=== PATIENT | male | born 1965 | race Caucasian/White ===

== ENCOUNTER 2017-03-03 17:10 | Observation (INO) ==
[2017-03-03] MEDS ORDERED: *HR* HYDROmorphone (PF) 1 MG/ML SYRINGE IVP ONE ×2 (17:23→20:28)
[2017-03-03] MEDS ORDERED: Ondansetron 4 MG/2 ML VIAL IVP ONE (17:23)
[2017-03-03] MEDS ORDERED: 0.9 % Sodium Chloride 1,000 ML IVC ONE (17:23)
--- NOTE | 2017-03-03 17:28 | Emergency Department Note ---
Disposition Clinical Impression: Ureterolithiasis, Acute kidney injury Disposition: Admitted As Inpatient Condition: Good Referrals: Violeta Humphries MD [Primary Care Provider] - Forms: Work/School Release, ED Satisfaction Letter Time of Disposition: 19:07 Abdominal Pain HPI - General Chief Complaint: ED Abdominal Pain Stated Complaint: Kidney stone seen earlier today Time Seen by Provider: 03/03/17 17:19 Source: patient, family Mode of arrival: ambulatory Limitations: no limitations Nursing Notes Reviewed: Yes Vital Signs Reviewed: Yes - History of Present Illness HPI Narrative: 51-year-old with a history kidney stone seen earlier today for left flank pain when back home was a nauseated severe pain. No imaging or lab was done earlier. Pt Subjective Complaint: abdominal pain, flank pain Onset (ago): Just [employer] Consistency: constant Location: diffuse Pain Severity: moderate Pain Scale: 10 Quality: cramping, aching Radiation: none Migration to: no migration Improves with: nothing Worsens with: nothing Associated symptoms: Reports: nausea - Related Data Home Medications Medication Instructions Recorded Confirmed Lyrica 08/04/16 Metformin 08/04/16 08/04/16 Oxycodone HCl 08/04/16 Previous Rx's Medication Instructions Recorded Amoxicillin 875 mg PO BID #28 tablet 08/04/16 Sulfacetamide Sodium 10% OPTH 2 drop BOTH EYES QID #5 ml 08/04/16 [Bleph 10] Ibuprofen [Motrin] 800 mg PO Q8HR #20 tablet 03/03/17 Ondansetron ODT [Zofran ODT] 4 mg SL Q6HR #8 tab.rapdis 03/03/17 OxyCODONE/APAP 5/325 [Percocet 1 each PO Q6HR PRN #4 tablet 03/03/17 5/325 MG] Tamsulosin [Flomax] 0.4 mg PO DAILY #7 cap.er.24h 03/03/17 Allergies Allergy/AdvReac Type Severity Reaction Status Date / Time morphine AdvReac Vomiting Verified 03/03/17 10:10 All systems ED: reviewed and negative except as stated. Constitutional: Denies: fever, chills, weakness, weight change Eyes: Denies: eye pain, eye discharge, vision change ENT ED: Denies: ear pain, throat pain, dental pain, hearing loss, epistaxis, congestion, dysphagia Cardiovascular: Denies: chest pain, palpitations, dyspnea on exertion, edema, syncope Respiratory: Denies: cough, dyspnea, wheezes, hemoptysis, stridor Gastrointestinal: Reports: abdominal pain. Denies: nausea, vomiting, diarrhea, constipation, hematemesis, melena, hematochezia Genitourinary: Denies: urgency, dysuria, frequency, hematuria Musculoskeletal: Reports: back pain. Denies: neck pain, arthralgia, myalgia Integumentary: Denies: rash, abrasion, lesions Neurological: Denies: headache, weakness, numbness, paresthesias, confusion, abnormal gait, vertigo Psychiatric: Denies: anxiety, depression, suicidal thoughts, homicidal thoughts , auditory hallucinations, visual hallucinations Endocrine: Denies: fatigue Hematological/Lymphatic: Denies: easy bleeding, easy bruising Allergic/Immunologic: Denies: facial swelling, urticaria Abdominal Pain PMH - Past Medical History Medical history: Reports: diabetes, GERD, other Male Surgical History: Reports: appendectomy, cholecystectomy, orthopedic, other , other Psychiatric history: Reports: anxiety, ADHD, bipolar, depression, panic disorder , PTSD, prior suicide attempt, schizophrenia, previous psychiatric hospitalization - Social History Smoking status: Current every day smoker Alcohol use: Reports: occasionally, recent Drug use: Reports: none Physical Exam - General Limitations: no limitations General appearance: alert, anxious - Head Head exam: atraumatic, normocephalic, normal inspection - Eye Eye exam: Present: normal appearance, PERRL, EOMI - ENT ENT exam: normal exam, normal oropharynx, mucous membranes moist - Neck Neck exam: Present: normal inspection, full ROM, trachea midline - Chest Chest inspection: Present: normal inspection, symmetric chest wall rise - Respiratory Respiratory exam: Present: normal lung sounds bilaterally - Cardiovascular Cardiovascular exam: Present: regular rate, normal rhythm, normal heart sounds - Abdominal Exam Abdominal exam: Present: soft, Non-Tender. Absent: tenderness, distention, guarding, rebound, rigidity - Extremities Exam Extremities exam: Present: normal inspection, full ROM. Absent: tenderness, pedal edema - Expanded Lower Extremity Exam Neurovascular/Tendon exam: Absent: motor deficit, sensory deficit, tendon deficit Gait: observed and normal - Back Exam Back exam: Present: normal inspection, full ROM. Absent: tenderness - Neurological Exam Neurological exam: Present: alert, oriented X3 - Psychiatric Psychiatric exam: Present: normal affect, normal mood - Skin Skin exam: Present: warm, dry, intact, normal color Course - Reevaluation(s) Reevaluation #1: 51-year-old who comes in with left flank pain of CT scan shows a 1 cm stone he has persistent pain that has renal insufficiency were go-ahead admit him to the hospitalist with a consult to urology. Time: 19:05 - Consultations Consultation #1: Discussed with Dr. Ramírez, admit to hospitalist. Time: 19:04 Consultation #2: Discussed with Dr. Baker, admit. Time: 19:27 Vital Signs Temperature 98.0 F 03/03/17 17:11 Pulse Rate 88 03/03/17 17:11 Respiratory Rate 20 03/03/17 17:11 Blood Pressure 158/88 03/03/17 17:11 O2 Sat by Pulse Oximetry 94 03/03/17 17:11 Temperature 98.0 F 03/03/17 17:11 Pulse Rate 70 03/03/17 19:00 Respiratory Rate 16 03/03/17 19:00 Blood Pressure 143/96 03/03/17 19:00 O2 Sat by Pulse Oximetry 92 03/03/17 19:00 Oxygen Delivery Oxygen Delivery Room Air Abdominal Pain - Lab Data Lab results reviewed: Yes I reviewed the patient's lab results. Result diagrams: 03/03/17 17:39 03/03/17 17:39 Lab Results 03/03/17 03/03/17 03/03/17 Range/Units 17:28 17:39 17:39 WBC 14.7 H (4.3-11.1) K/mcL RBC 4.74 (4.19-5.50) M/mcL Hgb 14.8 (12.9-16.9) g/dL Hct 43.2 (37.5-50.1) % MCV 91.1 (83.0-100.0) fL MCH 31.2 (28.0-33.3) pg MCHC 34.3 (31.6-35.5) g/dL RDW 12.3 (11.5-14.5) % Plt Count 157 (140-400) K/mcL MPV 11.4 (9.4-12.4) fL Immature Gran % 0.4 (0-4) % Seg Neutrophils % 78.4 % Lymphocytes % 14.5 % Monocytes % 5.3 % Eosinophils % 0.9 % Basophils % 0.5 % Neutrophils # 11.5 H (1.6-8.9) K/mcL Lymphocytes # 2.1 (0.6-4.6) K/mcL Monocytes # 0.8 (0.0-1.3) K/mcL Eosinophils # 0.1 (0.0-0.6) K/mcL Basophils # 0.1 (0.0-0.2) K/mcL Immature Plt Fraction 9.0 H (1.1-6.1) % Sodium 130 L (136-145) mEq/L Potassium 4.4 (3.5-4.5) mEq/L Chloride 99 (98-109) mEq/L Carbon Dioxide 21 (19-29) mEq/L BUN 19 (8-26) mg/dL Creatinine 1.77 H (0.72-1.25) mg/dL Est GFR ( Amer) 50 L (> 60) Est GFR (Non-Af Amer) 41 L (> 60) BUN/Creatinine Ratio 11 (6-26) Glucose 252 H (70-99) mg/dL Calculated Osmolality 281 (280-300) Calcium 8.8 (8.6-10.8) mg/dL Urine Color Yellow (Yellow) Urine Clarity Clear (Clear) Urine pH 6.0 (5.0-8.0) pH Units Ur Specific [place] 1.008 L (1.010-1.025) Urine Protein Negative (Neg-Trace) mg/dL Urine Glucose (UA) 100 H (Normal) mg/dL Urine Ketones Negative (Negative) mg/dL Urine Blood Large H (Negative) Urine Nitrite Negative (Negative) Urine Bilirubin Negative (Negative) Urine Urobilinogen Normal (Normal) mg/dL Ur Leukocyte Esterase Negative (Negative) Urine Microscopic RBC 0-3 (0-3) per hpf Urine Microscopic WBC Test Not Performed Uric Acid Crystals Present Ur Culture Indicated? NO (NO) - Radiology Data Radiology results reviewed: Yes I reviewed the patient's radiology results. Abdomen/Pelvis CT 03/03/17 17:22 IMPRESSION: There is an obstructing 1 cm calculus in the proximal left ureter just beyond the ureteropelvic junction with moderate hydronephrosis and perinephric stranding. There is a 0.9 cm nonobstructing right renal calculus. D/ / Kerry Ackerman MD / Kerry Ackerman MD Interpreting Provider: Kerry Ackerman MD
[2017-03-03 17:42] LABS: Bilirubin,Urine Negative (Negative); Blood,Urine Large (Negative); Clarity,Urine Clear (Clear); Color,Urine Yellow (Yellow); Glucose,Urine (UA) 100 mg/dL (Normal); Ketones,Urine Negative (Negative); Leukocyte Esterase,Urine Negative (Negative); Nitrite,Urine Negative (Negative); Protein,Urine Negative (Neg-Trace); Specific Gravity,Urine 1.008 (1.010-1.025); Urobilinogen,Urine Normal (Normal)
[2017-03-03 17:53] LABS: Basophils # 0.1 K/mcL (0.0-0.2); Basophils % 0.5 %; Eosinophils # 0.1 K/mcL (0.0-0.6); Eosinophils % 0.9 %; Hematocrit 43.2 % (37.5-50.1); Hemoglobin 14.8 g/dL (12.9-16.9); Immature Granulocytes % 0.4 % (0-4); Lymphocytes # 2.1 K/mcL (0.6-4.6); Lymphocytes % 14.5 %; Mean Corpuscular HGB Conc 34.3 g/dL (31.6-35.5); Mean Corpuscular Hemoglobin 31.2 pg (28.0-33.3); Mean Corpuscular Volume 91.1 fL (83.0-100.0); Mean Platelet Volume 11.4 fL (9.4-12.4); Monocytes # 0.8 K/mcL (0.0-1.3); Monocytes % 5.3 %; Neutrophils # 11.5 K/mcL (1.6-8.9); Platelet Count 157 K/mcL (140-400); Red Blood Count 4.74 M/mcL (4.19-5.50); Red Cell Distribution Width 12.3 % (11.5-14.5); Segmented Neutrophils % 78.4 %
[2017-03-03 18:00] LABS: Uric Acid Crystals,Urine Present
[2017-03-03 18:01] LABS: RBC,Urine 0-3 per hpf (0-3)
[2017-03-03 18:04] LABS: Calcium 8.8 mg/dL (8.6-10.8); Potassium 4.4 mEq/L (3.5-4.5)
[2017-03-03] MEDS: 0.9 % Sodium Chloride 1,000 ML IVC SCH (20:37)
[2017-03-03] MEDS ORDERED: Nicotine 21 MG PATCH.TD24 TD STA (20:57)
[2017-03-03] MEDS: *HR* HYDROmorphone (PF) 1 MG/ML SYRINGE IVP PRN (23:47)
[2017-03-04] MEDS ORDERED: Ondansetron 4 MG/2 ML VIAL IVP PRN ×2 (00:19→12:55)
[2017-03-04] MEDS ORDERED: Acetaminophen 325 MG TABLET PO PRN ×2 (00:19→12:55)
[2017-03-04] MEDS ORDERED: *HR* Promethazine 25 MG/ML VIAL IVP PRN ×3 (00:19→12:55)
[2017-03-04] MEDS ORDERED: *HR* OxyCODONE Immed Rel 5 MG TABLET PO PRN (00:19)
[2017-03-04] MEDS ORDERED: Naloxone 0.4 MG/ML INJ IVP PRN ×2 (00:19→12:55)
--- NOTE | 2017-03-04 00:53 | Internal Med History&Physical ---
Date of Encounter: 03/04/17 Time of Encounter: 00:51 Assessment and Plan (1) Left ureteral stone Current visit: Yes Status: Acute CT of the abdomen shows impacted left proximal ureteral stone with hydronephrosis. Pain is consistent with this. Plan: Consult urology. Nothing by mouth past midnight. Start empiric IV antibiotics to perinephric stranding and possibility of infected hydronephrosis. Pain control with IV Dilaudid every 3 hours when necessary. The patient is at high risk for morbidity, mortality and complications due to treatment with IV opiates. (2) Type 2 diabetes mellitus Current visit: Yes Status: Acute Stop metformin. Start insulin sliding scale every 6 hours. Qualifiers: Diabetes mellitus complication status: without complication Diabetes mellitus fci insulin use: without terminal gauger use Qualified Code(s): E11.9 - Type 2 diabetes mellitus without complications (3) DVT prophylaxis Current visit: Yes Status: Acute Encourage early ambulation. He does not require pharmacological prophylaxis. (4) Acute kidney injury Current visit: Yes Status: Acute IV fluids. Avoid nephrotoxins. Definitive treatment per urology for obstructive uropathy. (5) Anxiety Current visit: Yes Status: Acute Continue with Xanax. Internal Medicine - H&P: HPI Chief complaint: Left flank pain Admitted From: Emergency Dept Plans for Post Hospital Care: Home History of present illness: Mr. Conroy is a 51 year old male who presented to the hospital for evaluation of severe, 10/10 crampy left flank pain which started earlier today. He denies any aggravating or alleviating factors, cannot get comfortable in any position. Reports associated nausea and no vomiting. Denies fevers, reports some chills. Workup done in the emergency department including CT abdomen and pelvis which showed an impacted left ureteral stone. Urology was consulted and they recommended admission. Past Med Surg Social Fam HX - Past Medical History Medical history: diabetes, GERD, other Psychiatric history: anxiety, ADHD, bipolar, depression, panic disorder, PTSD, prior suicide attempt, schizophrenia, previous psychiatric hospitalization - Past Surgical History Surgical History: appendectomy, cholecystectomy - Social History Smoking Status: Current every day smoker Packs per day: 1 Smokeless Tobacco Status: No Alcohol use: occasionally, recent Drug use: none - Family History Father Hx Family Endocrine Disorder: Yes (DM) Internal Medicine - H&P: Meds Oxycodone HCl 10 mg PO TID PRN 08/04/16 [History] Pregabalin [Lyrica] 150 mg PO TID 08/04/16 [History] metFORMIN [Glucophage] 500 mg PO BIDWM PRN 08/04/16 [History] ALPRAZolam [Xanax 0.5 MG Tablet] 0.5 mg PO TID 03/03/17 [History] Atorvastatin [Lipitor] 10 mg PO HS 03/03/17 [History] Cyclobenzaprine [Flexeril] 10 mg PO HS 03/03/17 [History] Fluticasone Propionate Nasal [Flonase] 100 mcg NS DAILY PRN 03/03/17 [History] Ibuprofen [Motrin] 800 mg PO Q8HR PRN 03/03/17 [History] Lansoprazole [Prevacid] 30 mg PO DAILY 03/03/17 [History] Loratadine [Claritin] 10 mg PO DAILY PRN 03/03/17 [History] Meloxicam [Mobic] 15 mg PO DAILY 03/03/17 [History] Multivitamin [Multi-Day Vitamins] 1 each PO DAILY 03/03/17 [History] Ondansetron ODT [Zofran ODT] 4 mg SL Q6HR PRN 03/03/17 [History] Tamsulosin [Flomax] 0.4 mg PO DAILY #7 cap.er.24h 03/03/17 [Rx] Trazodone HCl 100 - 200 mg PO HS 03/03/17 [History] Allergies morphine Adverse Reaction (Verified 03/03/17 10:10) Vomiting All Systems PM: A 10-system review of systems was performed and is negative for pertinent findings except as documented above in the HPI. - Constitutional Vitals: Temp Pulse Resp BP Pulse Ox 98.2 F 78 16 144/74 96 03/03/17 23:28 03/03/17 23:28 03/03/17 23:28 03/03/17 23:28 03/03/17 23:28 General appearance: Present: A&O X 3, severe distress - Eye Eye exam: Present: PERRL, conjuntiva pink, sclera anicteric Pupils: Present: PERRL - Respiratory Respiratory exam: Present: CTAB. Absent: accessory muscle use, rales, rhonchi, wheezes - Cardiovascular Cardiovascular exam: Present: RRR, +S1, +S2. Absent: diastolic murmur, gallop, rubs, systolic murmur - GI/Abdominal GI/Abdominal exam: Present: normal bowel sounds, soft, tenderness, no peritoneal signs. Absent: distended - Extremities Exam Extremities exam: Present: warm, radial pulses palpable and symmetrical. Absent : calf tenderness, cyanotic, pedal edema - Neurological Exam Neurological exam: Present: CN II-XII intact, oriented X3, no focal deficits. Absent: pronater drift, facial droop, speech deficit - Skin Skin exam: Present: dry, intact Internal Med - H&P Results - Labs CBC & Chem 7: 03/03/17 17:39 03/03/17 17:39
[2017-03-04] MEDS: *HR* HYDROmorphone (PF) 1 MG/ML SYRINGE IVP PRN ×2 (02:54→06:21)
[2017-03-04] MEDS: 0.9 % Sodium Chloride 1,000 ML IVC SCH ×3 (02:56→16:39)
[2017-03-04] MEDS: Piperacillin/Tazobactam 3.375 GM in D5% in Water (Mini-Bag+) 100 ML IVPB SCH ×3 (02:58→17:41)
[2017-03-04] MEDS ORDERED: D5% in Water 1,000 ML IVC PRN ×2 (03:52→12:55)
[2017-03-04] MEDS ORDERED: *HR* Dextrose 50 % in Water (Syg) 50 ML SYRINGE IVP PRN ×2 (03:52→12:55)
[2017-03-04] MEDS ORDERED: Dextrose Gel 15 GM PO PRN ×4 (03:52→12:55)
[2017-03-04 05:46] LABS: Basophils # 0.1 K/mcL (0.0-0.2); Basophils % 0.5 %; Eosinophils # 0.1 K/mcL (0.0-0.6); Eosinophils % 0.9 %; Hematocrit 41.3 % (37.5-50.1); Immature Granulocytes % 0.3 % (0-4); Lymphocytes # 1.8 K/mcL (0.6-4.6); Lymphocytes % 12.4 %; Mean Corpuscular HGB Conc 33.9 g/dL (31.6-35.5); Mean Corpuscular Hemoglobin 31.3 pg (28.0-33.3); Mean Corpuscular Volume 92.4 fL (83.0-100.0); Mean Platelet Volume 11.6 fL (9.4-12.4); Monocytes # 0.7 K/mcL (0.0-1.3); Neutrophils # 11.7 K/mcL (1.6-8.9); Platelet Count 135 K/mcL (140-400); Red Blood Count 4.47 M/mcL (4.19-5.50); Red Cell Distribution Width 12.6 % (11.5-14.5); Segmented Neutrophils % 80.9 %
[2017-03-04 05:56] LABS: Calcium 8.7 mg/dL (8.6-10.8); Magnesium 1.6 mg/dL (1.6-2.6); Potassium 4.5 mEq/L (3.5-4.5)
[2017-03-04] MEDS ORDERED: Insulin LISPRO 300 UNITS/3 ML VIAL SQ SCH (06:00)
[2017-03-04] MEDS ORDERED: Pantoprazole 40 MG VIAL IVP SCH (06:30)
--- NOTE | 2017-03-04 08:53 | Urology - Consult Note ---
Date of Encounter: 03/04/17 Time of Encounter: 08:51 - Assessment and Plan (1) Acute kidney injury Current Visit: Yes Status: Acute Assessment and plan: will likely improve with ureteral stent today (2) Left ureteral stone Current Visit: Yes Status: Acute Assessment and plan: plan on cysto and left ureteral stent placement today. Urology CN:SYED Consult date: 03/04/17 Reason for consult Urology: Other (kidney stone) Requesting physician: Manav Baker History of present illness: Tim is a 51 y/o male with history of admission secondary to severe left sided 10/10 flank pain. patient found to have a left 10mm upj stone. patient with some nausea. no fevers. + elevated WBC count. + elevated serum creatinine. patient also with non obstructing right lower pole renal stone. Past Med Surg Social Fam HX - Past Medical History Medical history: diabetes, GERD, other Psychiatric history: anxiety, ADHD, bipolar, depression, panic disorder, PTSD, prior suicide attempt, schizophrenia, previous psychiatric hospitalization - Past Surgical History Surgical History: appendectomy, cholecystectomy - Social History Smoking Status: Current every day smoker Packs per day: 1 Smokeless Tobacco Status: No Alcohol use: occasionally, recent Drug use: none - Family History Father Hx Family Endocrine Disorder: Yes (DM) Medications and Allergies Oxycodone HCl 10 mg PO TID PRN 08/04/16 [History] Pregabalin [Lyrica] 150 mg PO TID 08/04/16 [History] metFORMIN [Glucophage] 500 mg PO BIDWM PRN 08/04/16 [History] ALPRAZolam [Xanax 0.5 MG Tablet] 0.5 mg PO TID 03/03/17 [History] Atorvastatin [Lipitor] 10 mg PO HS 03/03/17 [History] Cyclobenzaprine [Flexeril] 10 mg PO HS 03/03/17 [History] Fluticasone Propionate Nasal [Flonase] 100 mcg NS DAILY PRN 03/03/17 [History] Ibuprofen [Motrin] 800 mg PO Q8HR PRN 03/03/17 [History] Lansoprazole [Prevacid] 30 mg PO DAILY 03/03/17 [History] Loratadine [Claritin] 10 mg PO DAILY PRN 03/03/17 [History] Meloxicam [Mobic] 15 mg PO DAILY 03/03/17 [History] Multivitamin [Multi-Day Vitamins] 1 each PO DAILY 03/03/17 [History] Ondansetron ODT [Zofran ODT] 4 mg SL Q6HR PRN 03/03/17 [History] Tamsulosin [Flomax] 0.4 mg PO DAILY #7 cap.er.24h 03/03/17 [Rx] Trazodone HCl 100 - 200 mg PO HS 03/03/17 [History] Allergies morphine Adverse Reaction (Verified 03/03/17 10:10) Vomiting Review of Systems - Constitutional no fever(s) - EENT Nose, mouth and throat: no dizziness - Cardiovascular no chest pain - Respiratory no cough - Gastrointestinal abdominal pain - Musculoskeletal back pain - Integumentary no erythema - Neurological no confusion - Psychiatric no anxiety - Hematologic/Lymphatic no easy bleeding Exam Initial Vital Signs Temp Pulse Resp BP Pulse Ox 98.0 F 88 20 158/88 94 03/03/17 17:11 03/03/17 17:11 03/03/17 17:11 03/03/17 17:11 03/03/17 17:11 - General physical appearance Present: well developed - Eyes Present: PERRL - ENT Present: normal nares - Neck Present: no masses - Respiratory Present: normal respiratory effort - Cardiovascular Cardiovascular exam IM: RRR - Abdomen Abdomen: Present: soft - Integumentary Present: no rash Urology Results - Labs 03/04/17 04:41 03/04/17 04:41 Abnormal lab results WBC 14.5 K/mcL (4.3-11.1) H 03/04/17 04:41 Plt Count 135 K/mcL (140-400) L 03/04/17 04:41 Neutrophils # 11.7 K/mcL (1.6-8.9) H 03/04/17 04:41 Immature Plt Fraction 9.0 % (1.1-6.1) H 03/03/17 17:39 Creatinine 1.99 mg/dL (0.72-1.25) H 03/04/17 04:41 Est GFR ( Amer) 44 (> 60) L 03/04/17 04:41 Est GFR (Non-Af Amer) 36 (> 60) L 03/04/17 04:41 Glucose 238 mg/dL (70-99) H 03/04/17 04:41 Ur Specific [place] 1.008 (1.010-1.025) L 03/03/17 17:28 Urine Glucose (UA) 100 mg/dL (Normal) H 03/03/17 17:28 Urine Blood Large (Negative) H 03/03/17 17:28 Diabetes panel 03/04/17 Range/Units 04:41 Sodium 136 (136-145) mEq/L Potassium 4.5 (3.5-4.5) mEq/L Chloride 103 (98-109) mEq/L Carbon Dioxide 24 (19-29) mEq/L BUN 19 (8-26) mg/dL Creatinine 1.99 H (0.72-1.25) mg/dL Glucose 238 H (70-99) mg/dL Calcium 8.7 (8.6-10.8) mg/dL Calcium panel 03/04/17 Range/Units 04:41 Calcium 8.7 (8.6-10.8) mg/dL Pituitary panel 03/04/17 Range/Units 04:41 Sodium 136 (136-145) mEq/L Potassium 4.5 (3.5-4.5) mEq/L Chloride 103 (98-109) mEq/L Carbon Dioxide 24 (19-29) mEq/L BUN 19 (8-26) mg/dL Creatinine 1.99 H (0.72-1.25) mg/dL Glucose 238 H (70-99) mg/dL Calcium 8.7 (8.6-10.8) mg/dL Adrenal panel 03/04/17 Range/Units 04:41 Sodium 136 (136-145) mEq/L Potassium 4.5 (3.5-4.5) mEq/L Chloride 103 (98-109) mEq/L Carbon Dioxide 24 (19-29) mEq/L BUN 19 (8-26) mg/dL Creatinine 1.99 H (0.72-1.25) mg/dL Glucose 238 H (70-99) mg/dL Calcium 8.7 (8.6-10.8) mg/dL All other labs normal. - Imaging CT scan - abdomen: image reviewed CT scan - pelvis: image reviewed Consult Discharge Plan - Plan Referrals: Violeta Humphries MD [Primary Care Provider] -
[2017-03-04] MEDS ORDERED: ALPRAZolam 0.5 MG TABLET PO SCH (09:00)
[2017-03-04] MEDS ORDERED: Albuterol 2.5 MG/3 ML NEBULIZER ONE (10:04)
[2017-03-04] MEDS ORDERED: Albuterol 2.5 MG/3 ML NEBULIZER IH ONE (10:10)
--- NOTE | 2017-03-04 10:37 | Anesthesia Evaluation PreOp ---
Date of Encounter: 03/04/17 Time of Encounter: 10:35 - Past History Planned Operation: l cystoscopy, l ureteral stent Cardiac History: HTN, Hyperlipidemia Pulmonary History: Smoker WING SCORER History: Other (schizo, bipolar, anxiety, ptsd, prior Suicide attempt) Other Medical History: Diabetes Type II, GERD Anesthesia History: No Prior Anesthetic Complications, Past Anesthesia (appy, cholecyst) Alcohol Use: occasionally, recent Drug use: none Medications and Allergies Oxycodone HCl 10 mg PO TID PRN 08/04/16 [History] Pregabalin [Lyrica] 150 mg PO TID 08/04/16 [History] metFORMIN [Glucophage] 500 mg PO BIDWM PRN 08/04/16 [History] ALPRAZolam [Xanax 0.5 MG Tablet] 0.5 mg PO TID 03/03/17 [History] Atorvastatin [Lipitor] 10 mg PO HS 03/03/17 [History] Cyclobenzaprine [Flexeril] 10 mg PO HS 03/03/17 [History] Fluticasone Propionate Nasal [Flonase] 100 mcg NS DAILY PRN 03/03/17 [History] Ibuprofen [Motrin] 800 mg PO Q8HR PRN 03/03/17 [History] Lansoprazole [Prevacid] 30 mg PO DAILY 03/03/17 [History] Loratadine [Claritin] 10 mg PO DAILY PRN 03/03/17 [History] Meloxicam [Mobic] 15 mg PO DAILY 03/03/17 [History] Multivitamin [Multi-Day Vitamins] 1 each PO DAILY 03/03/17 [History] Ondansetron ODT [Zofran ODT] 4 mg SL Q6HR PRN 03/03/17 [History] Tamsulosin [Flomax] 0.4 mg PO DAILY #7 cap.er.24h 03/03/17 [Rx] Trazodone HCl 100 - 200 mg PO HS 03/03/17 [History] Allergies morphine Adverse Reaction (Verified 03/03/17 10:10) Vomiting - Meds/Allergy Pre-op Review Medications Reviewed: Yes Allergies Reviewed: Yes Beta Blockers on Current Med List: No Anesthesia Results - Labs 03/04/17 04:41 03/04/17 04:41 Anesthesia Exam Vital Signs/O2 Sat/Glucose, Most Current Temp Pulse Resp BP Pulse Ox 03/04/17 10:13 98.3 F 59 18 124/79 88 03/04/17 08:23 97.9 F 64 20 129/73 93 Blood glucose: 227 (0536) Height: 1.8 Weight: 102 NPO (# of Hours): >8 - HEENT Pupil (Motor): Pupils equal, EOMI Mallampati: II Teeth: Poor dentition Oral Opening: Greater than 3 - WING SCORER LOC: Oriented WING SCORER Motor: Normal RUE, Normal LUE, Normal RLE, Normal LLE, Normal Face WING SCORER Sensory: Normal: RUE, LUE, RLE, LLE, Face - Cardiac Rhythm: Regular Murmur: None - Pulmonary Breath Sounds: bilateral Clear Respiratory Effort: Symmetrical Anesthesia Assess/Plan ASA Score: 3 Modified Marla Scale for Level of Consciousness: Cooperative, oriented, and tranquil Anesthetic Plan: General Monitoring Plan: Standard Monitors Recovery Plan: PACU
[2017-03-04] MEDS ORDERED: *HR* HYDROmorphone (PF) 1 MG/ML SYRINGE IVP PRN (10:41)
[2017-03-04] MEDS ORDERED: Dexamethasone 4 MG/ML VIAL ONE (10:44)
[2017-03-04] MEDS ORDERED: Ondansetron 4 MG/2 ML VIAL ONE (10:44)
[2017-03-04] MEDS ORDERED: *HR* FentaNYL (PF) 100 MCG/2 ML VIAL ONE (10:44)
[2017-03-04] MEDS ORDERED: Lidocaine -MPF 2% 2 ML VIAL ONE (10:44)
[2017-03-04] MEDS ORDERED: *HR* Propofol 200 MG/20 ML VIAL IVP ONE (10:44)
--- NOTE | 2017-03-04 11:19 | Operative Note ---
Date of procedure: 03/04/17 Pre-op diagnosis: left upj stone Post-op diagnosis: same Procedure: Cystoscopy and left 4.8 x 28 cm ureteral stent placement Anesthesia: ETIENNE Surgeon: Nestor Ramírez Condition: stable Disposition: PACU Procedure in Detail: Patient was prepped and draped in normal sterile fashion. Timeout procedure performed. I then inserted the rigid cystoscope into the patient's bladder. Patient's bladder was filled with what appeared to be uric acid crystals. At this point I then cannulated the left ureteral orifice using a Glidewire. I then placed a 4.8 x 28 cm ureteral stent with good curl seen in the left kidney and in the bladder. Hydronephrotic drip was seen without any pus. Patient be transferred back to . Recommend to keep the patient overnight and discharged tomorrow if patient okay. We will continue to follow along closely while in the hospital.
--- NOTE | 2017-03-04 11:50 | Event Note ---
Date of Encounter: 03/04/17 Time of Encounter: 09:00 Complains of pain in the left flank and abdomen along with nausea. Urology has been consulted. Plan is to take him to the OR for cystoscopy. Continue IV antibiotics and IV fluids and pain control.
--- NOTE | 2017-03-04 11:51 | Anesthesia Evaluation Post Op ---
Date of Encounter: 03/04/17 Time of Encounter: 11:50 - Vital Signs Vital Signs: Vital Signs/O2 Sat/Glucose, Most Current Temp Pulse Resp BP Pulse Ox 03/04/17 11:40 61 18 114/75 96 03/04/17 11:30 62 18 116/79 98 03/04/17 11:20 97.8 F 66 18 115/77 96 03/04/17 10:13 98.3 F 59 18 124/79 88 03/04/17 08:23 97.9 F 64 20 129/73 93 - Lungs Lungs: Clear Ascult./Percussion - Airway Airway: Non-obstructed - Cardiovascular Regular Rate - Mental Status Mental Status: Alert & Oriented, Answers Appropriately - Pain Pain Scale: 0 - Nausea Vomiting Nausea Vomiting: Not Present - Hydration Hydration: Tolerates oral liquids - Discharge PostOp Status: Transfer Patient to floor
[2017-03-04] MEDS ORDERED: 0.9 % Sodium Chloride 1,000 ML IVC SCH (12:55)
[2017-03-04] MEDS: *HR* OxyCODONE Immed Rel 5 MG TABLET PO PRN ×2 (13:49→21:05)
[2017-03-04] MEDS: ALPRAZolam 0.5 MG TABLET PO SCH ×2 (15:26→21:00)
[2017-03-04] MEDS ORDERED: 0.9 % Sodium Chloride 1,000 ML ONE (16:08)
[2017-03-04] MEDS: Insulin LISPRO 300 UNITS/3 ML VIAL SQ SCH (17:40)
[2017-03-04] MEDS: traZODone 50 MG TABLET PO SCH (20:59)
[2017-03-04] MEDS: Pregabalin 75 MG CAPSULE PO SCH (20:59)
[2017-03-04] MEDS ORDERED: traZODone 50 MG TABLET PO SCH (21:00)
[2017-03-04] MEDS: Nicotine 14 MG PATCH.TD24 TD SCH (23:07)
[2017-03-05] MEDS: Insulin LISPRO 300 UNITS/3 ML VIAL SQ SCH ×4 (00:25→17:41)
[2017-03-05] MEDS: Piperacillin/Tazobactam 3.375 GM in D5% in Water (Mini-Bag+) 100 ML IVPB SCH ×3 (03:38→17:17)
[2017-03-05] MEDS: Pantoprazole 40 MG VIAL IVP SCH (06:34)
[2017-03-05 08:52] LABS: Basophils % 0.2 %; Eosinophils % 0.1 %; Hematocrit 40.5 % (37.5-50.1); Hemoglobin 13.8 g/dL (12.9-16.9); Immature Granulocytes % 0.5 % (0-4); Lymphocytes # 2.7 K/mcL (0.6-4.6); Lymphocytes % 14.8 %; Mean Corpuscular HGB Conc 34.1 g/dL (31.6-35.5); Mean Corpuscular Hemoglobin 31.2 pg (28.0-33.3); Mean Corpuscular Volume 91.6 fL (83.0-100.0); Mean Platelet Volume 11.6 fL (9.4-12.4); Monocytes # 0.8 K/mcL (0.0-1.3); Monocytes % 4.4 %; Neutrophils # 14.5 K/mcL (1.6-8.9); Platelet Count 152 K/mcL (140-400); Red Blood Count 4.42 M/mcL (4.19-5.50); Red Cell Distribution Width 12.6 % (11.5-14.5)
[2017-03-05] MEDS: Pregabalin 75 MG CAPSULE PO SCH ×3 (09:02→20:29)
[2017-03-05] MEDS: ALPRAZolam 0.5 MG TABLET PO SCH ×3 (09:02→20:29)
[2017-03-05] MEDS: Nicotine 14 MG PATCH.TD24 TD SCH (09:02)
[2017-03-05 09:07] LABS: BUN/Creatinine Ratio 12 (6-26); Blood Urea Nitrogen 15 mg/dL (8-26); Calcium 9.5 mg/dL (8.6-10.8); Carbon Dioxide 29 mEq/L (19-29); Chloride 106 mEq/L (98-109); Glucose 147 mg/dL (70-99); Osmolality,Calculated 298 (280-300); Potassium 3.9 mEq/L (3.5-4.5); Sodium 142 mEq/L (136-145); eGFR For African Americans > 60 (> 60); eGFR For Non-African Americans > 60 (> 60)
[2017-03-05] MEDS: *HR* OxyCODONE Immed Rel 5 MG TABLET PO PRN (09:41)
--- NOTE | 2017-03-05 09:42 | Urology Progress Note ---
Date of Encounter: 03/05/17 Time of Encounter: 09:41 - Assessment and Plan (1) Acute kidney injury Current Visit: Yes Status: Acute (2) Left ureteral stone Current Visit: Yes Status: Acute Assessment and plan: sp stenting. recommend to continue with iv abx until WBC starts to improve. Progress Note Narrative: patient seen this am. patient feeling better, but WBC increased to 18,000. Objective Initial Vital Signs Temp Pulse Resp BP Pulse Ox 98.0 F 88 20 158/88 94 03/03/17 17:11 03/03/17 17:11 03/03/17 17:11 03/03/17 17:11 03/03/17 17:11 - General physical appearance Present: well developed - Abdomen Present: soft - Labs 03/05/17 08:23 03/05/17 08:23 Diabetes panel 03/05/17 Range/Units 08:23 Sodium 142 (136-145) mEq/L Potassium 3.9 (3.5-4.5) mEq/L Chloride 106 (98-109) mEq/L Carbon Dioxide 29 (19-29) mEq/L BUN 15 (8-26) mg/dL Creatinine 1.22 (0.72-1.25) mg/dL Glucose 147 H (70-99) mg/dL Calcium 9.5 (8.6-10.8) mg/dL Calcium panel 03/05/17 Range/Units 08:23 Calcium 9.5 (8.6-10.8) mg/dL Pituitary panel 03/05/17 Range/Units 08:23 Sodium 142 (136-145) mEq/L Potassium 3.9 (3.5-4.5) mEq/L Chloride 106 (98-109) mEq/L Carbon Dioxide 29 (19-29) mEq/L BUN 15 (8-26) mg/dL Creatinine 1.22 (0.72-1.25) mg/dL Glucose 147 H (70-99) mg/dL Calcium 9.5 (8.6-10.8) mg/dL Adrenal panel 03/05/17 Range/Units 08:23 Sodium 142 (136-145) mEq/L Potassium 3.9 (3.5-4.5) mEq/L Chloride 106 (98-109) mEq/L Carbon Dioxide 29 (19-29) mEq/L BUN 15 (8-26) mg/dL Creatinine 1.22 (0.72-1.25) mg/dL Glucose 147 H (70-99) mg/dL Calcium 9.5 (8.6-10.8) mg/dL - VTE Documentation of Mechanical Device: Intermittent pneumatic compression device Consult Discharge Plan - Plan Referrals: Violeta Humphries MD [Primary Care Provider] -
--- NOTE | 2017-03-05 12:17 | Internal Med Progress Note ---
Date of Encounter: 03/05/17 Time of Encounter: 12:15 - Assessment and plan (1) Left ureteral stone Current Visit: Yes Status: Acute Assessment and plan: Patient underwent ureteral stent placement yesterday. Persistent leukocytosis. Continue IV antibiotics. Moderate risk for complications (2) Renal colic on left side Current Visit: Yes Status: Acute Assessment and plan: Continue supportive care with pain medications, Flomax and gentle hydration. (3) Acute kidney injury Current Visit: Yes Status: Resolved Assessment and plan: This has now resolved (4) Type 2 diabetes mellitus Current Visit: Yes Status: Chronic Assessment and plan: On sliding scale insulin. We will change to coverage to before meals and at bedtime Qualifiers: Diabetes mellitus complication status: without complication Diabetes mellitus skilled nursing insulin use: without enterprise resource analyst use Qualified Code(s): E11.9 - Type 2 diabetes mellitus without complications (5) DVT prophylaxis Current Visit: Yes Status: Acute Assessment and plan: With subcutaneous heparin - Subjective Interval history: Patient doing well overall. Having some symptoms of dysuria but improving. Tolerating diet well. No other new complaints at this time - Constitutional Vitals: Temp Pulse Resp BP Pulse Ox 98.0 F 66 17 128/70 96 03/05/17 11:30 03/05/17 11:30 03/05/17 11:30 03/05/17 11:30 03/05/17 11:30 General appearance: Present: cooperative, A&O X 3, no acute distress, answers questions appropriately - Respiratory Respiratory exam: Present: CTAB. Absent: accessory muscle use, rales, rhonchi, wheezes - Cardiovascular Cardiovascular exam: Present: RRR, +S1, +S2. Absent: diastolic murmur, gallop, rubs, systolic murmur - GI/Abdominal GI/Abdominal exam: Present: normal bowel sounds, soft, no peritoneal signs. Absent: distended, tenderness - Neurological Exam Neurological exam: Present: alert, oriented X3, no focal deficits. Absent: facial droop, speech deficit - Skin Skin exam: Present: dry, intact Internal Medicine: Result - Labs CBC & Chem 7: 03/05/17 08:23 03/05/17 08:23 Labs: Short CBC 03/05/17 Range/Units 08:23 WBC 18.1 H (4.3-11.1) K/mcL Hgb 13.8 (12.9-16.9) g/dL Hct 40.5 (37.5-50.1) % Plt Count 152 (140-400) K/mcL Neutrophils # 14.5 H (1.6-8.9) K/mcL BMP 03/05/17 08:23 Sodium 142 Potassium 3.9 Chloride 106 Carbon Dioxide 29 BUN 15 Creatinine 1.22 Glucose 147 H Calcium 9.5 - Impressions Impressions Fluoroscopy 03/04/17 00:00 IMPRESSION: Intraprocedural fluoroscopic spot images as above. See separate procedure report for more information. D/ / Israel Esquivel MD / Israel Esquivel MD Interpreting Provider: Israel Esquivel MD X-Ray 03/04/17 00:00 IMPRESSION: Intraprocedural fluoroscopic spot images as above. See separate procedure report for more information. D/ / Israel Esquivel MD / Israel Esquivel MD Interpreting Provider: Israel Esquivel MD - VTE Documentation of Mechanical Device: Intermittent pneumatic compression device Consult Discharge Plan - Plan Referrals: Violeta Humphries MD [Primary Care Provider] -
[2017-03-05] MEDS: 0.9 % Sodium Chloride 1,000 ML IVC SCH (14:23)
[2017-03-05] MEDS: *HR* Heparin 5,000 UNIT/ML VIAL SQ SCH (17:17)
[2017-03-05] MEDS: *HR* HYDROmorphone (PF) 1 MG/ML SYRINGE IVP PRN (20:28)
[2017-03-05] MEDS: traZODone 50 MG TABLET PO SCH (20:28)
[2017-03-05] MEDS ORDERED: Insulin LISPRO 300 UNITS/3 ML VIAL SQ SCH (21:00)
[2017-03-06] MEDS: *HR* HYDROmorphone (PF) 1 MG/ML SYRINGE IVP PRN ×2 (01:55→06:05)
[2017-03-06] MEDS: Piperacillin/Tazobactam 3.375 GM in D5% in Water (Mini-Bag+) 100 ML IVPB SCH ×2 (02:15→08:57)
[2017-03-06] MEDS: 0.9 % Sodium Chloride 1,000 ML IVC SCH (04:30)
[2017-03-06] MEDS: *HR* Heparin 5,000 UNIT/ML VIAL SQ SCH (06:04)
[2017-03-06] MEDS: Pantoprazole 40 MG VIAL IVP SCH (06:05)
[2017-03-06 06:10] LABS: Basophils # 0.1 K/mcL (0.0-0.2); Basophils % 0.7 %; Eosinophils # 0.3 K/mcL (0.0-0.6); Eosinophils % 2.7 %; Hematocrit 39.5 % (37.5-50.1); Hemoglobin 13.1 g/dL (12.9-16.9); Immature Granulocytes % 0.5 % (0-4); Lymphocytes # 4.4 K/mcL (0.6-4.6); Lymphocytes % 41.8 %; Mean Corpuscular HGB Conc 33.2 g/dL (31.6-35.5); Mean Corpuscular Hemoglobin 31.3 pg (28.0-33.3); Mean Corpuscular Volume 94.5 fL (83.0-100.0); Mean Platelet Volume 12.3 fL (9.4-12.4); Monocytes # 0.5 K/mcL (0.0-1.3); Monocytes % 4.2 %; Neutrophils # 5.3 K/mcL (1.6-8.9); Platelet Count 151 K/mcL (140-400); Red Blood Count 4.18 M/mcL (4.19-5.50); Red Cell Distribution Width 12.8 % (11.5-14.5); Segmented Neutrophils % 50.1 %
[2017-03-06 07:14] VITALS: BP 128/81
--- NOTE | 2017-03-06 07:57 | Urology Progress Note ---
Date of Encounter: 03/06/17 Time of Encounter: 07:55 - Assessment and Plan (1) Acute kidney injury Current Visit: Yes Status: Resolved Assessment and plan: Resolved. (2) Left ureteral stone Current Visit: Yes Status: Acute Assessment and plan: Patient seen and doing well. Patient will be scheduled to return to the operating room in 1-2 weeks. No follow-up in the urology office needed. Patient's white count has resolved. Progress Note Narrative: Patient seen and doing well. No pain at this time. Objective Initial Vital Signs Temp Pulse Resp BP Pulse Ox 98.0 F 88 20 158/88 94 03/03/17 17:11 03/03/17 17:11 03/03/17 17:11 03/03/17 17:11 03/03/17 17:11 - General physical appearance Present: well developed - Abdomen Present: soft - Labs 03/06/17 03:41 03/05/17 08:23 Diabetes panel 03/05/17 Range/Units 08:23 Sodium 142 (136-145) mEq/L Potassium 3.9 (3.5-4.5) mEq/L Chloride 106 (98-109) mEq/L Carbon Dioxide 29 (19-29) mEq/L BUN 15 (8-26) mg/dL Creatinine 1.22 (0.72-1.25) mg/dL Glucose 147 H (70-99) mg/dL Calcium 9.5 (8.6-10.8) mg/dL Calcium panel 03/05/17 Range/Units 08:23 Calcium 9.5 (8.6-10.8) mg/dL Pituitary panel 03/05/17 Range/Units 08:23 Sodium 142 (136-145) mEq/L Potassium 3.9 (3.5-4.5) mEq/L Chloride 106 (98-109) mEq/L Carbon Dioxide 29 (19-29) mEq/L BUN 15 (8-26) mg/dL Creatinine 1.22 (0.72-1.25) mg/dL Glucose 147 H (70-99) mg/dL Calcium 9.5 (8.6-10.8) mg/dL Adrenal panel 03/05/17 Range/Units 08:23 Sodium 142 (136-145) mEq/L Potassium 3.9 (3.5-4.5) mEq/L Chloride 106 (98-109) mEq/L Carbon Dioxide 29 (19-29) mEq/L BUN 15 (8-26) mg/dL Creatinine 1.22 (0.72-1.25) mg/dL Glucose 147 H (70-99) mg/dL Calcium 9.5 (8.6-10.8) mg/dL - VTE Documentation of Mechanical Device: Intermittent pneumatic compression device Consult Discharge Plan - Plan Referrals: Violeta Humphries MD [Primary Care Provider] -
[2017-03-06] MEDS: Insulin LISPRO 300 UNITS/3 ML VIAL SQ SCH (08:56)
[2017-03-06] MEDS: Pregabalin 75 MG CAPSULE PO SCH (08:56)
[2017-03-06] MEDS: ALPRAZolam 0.5 MG TABLET PO SCH (08:56)
[2017-03-06] MEDS: Nicotine 14 MG PATCH.TD24 TD SCH (08:57)
--- NOTE | 2017-03-06 09:27 | Discharge Summary ---
Date of Encounter: 03/06/17 Time of Encounter: 09:23 - Discharge Diagnosis (1) Left ureteral stone Priority: Primary Status: Acute (2) Renal colic on left side Priority: Secondary Status: Acute (3) Acute kidney injury Priority: Secondary Status: Resolved (4) Type 2 diabetes mellitus Priority: Secondary Status: Chronic Qualifiers: Diabetes mellitus complication status: without complication Diabetes mellitus termite technician insulin use: without fpc use Qualified Code(s): E11.9 - Type 2 diabetes mellitus without complications (5) DVT prophylaxis Priority: Secondary Status: Acute - Discharge Medications Prescriptions: Ciprofloxacin [Cipro] 500 mg PO BID #10 tablet Home Medications: Oxycodone HCl 10 mg PO TID PRN 08/04/16 [History] Pregabalin [Lyrica] 150 mg PO TID 08/04/16 [History] metFORMIN [Glucophage] 500 mg PO BIDWM PRN 08/04/16 [History] ALPRAZolam [Xanax 0.5 MG Tablet] 0.5 mg PO TID 03/03/17 [History] Atorvastatin [Lipitor] 10 mg PO HS 03/03/17 [History] Cyclobenzaprine [Flexeril] 10 mg PO HS 03/03/17 [History] Fluticasone Propionate Nasal [Flonase] 100 mcg NS DAILY PRN 03/03/17 [History] Ibuprofen [Motrin] 800 mg PO Q8HR PRN 03/03/17 [History] Lansoprazole [Prevacid] 30 mg PO DAILY 03/03/17 [History] Loratadine [Claritin] 10 mg PO DAILY PRN 03/03/17 [History] Meloxicam [Mobic] 15 mg PO DAILY 03/03/17 [History] Multivitamin [Multi-Day Vitamins] 1 each PO DAILY 03/03/17 [History] Ondansetron ODT [Zofran ODT] 4 mg SL Q6HR PRN 03/03/17 [History] Tamsulosin [Flomax] 0.4 mg PO DAILY #7 cap.er.24h 03/03/17 [Rx] Trazodone HCl 100 - 200 mg PO HS 03/03/17 [History] Ciprofloxacin [Cipro] 500 mg PO BID #10 tablet 03/06/17 [Rx] Allergies/Adverse Reactions: Allergies morphine Adverse Reaction (Verified 03/03/17 10:10) Vomiting Date of admission: 03/03/17 20:40 Primary care physician: Violeta Humphries Consults: 03/03/17 19:06 Consult to Urology [CONS] Stat Consulting Provider: Trinidad Mullins Reason for Consult: 1 cm obstructing stone Time Notified: 19:06 Call Completed: Yes Discharging clinician: Damon Palacios Anticipated date of discharge: 03/06/17 - Patient Status Disposition: Home, Self-Care Condition: Good Overall status at discharge: patient is back to baseline - Discharge Instructions Follow Up With: Violeta Humphries MD [Primary Care Provider] - (In 1-2 weeks) - Diet and Activity Activity: increase activity as tolerated Diet: diabetic diet, low fat, low cholesterol, low salt diet Hospital course: Mr. Conroy is a 51 year old male patient with a history of type 2 diabetes mellitus, anxiety disorder and chronic pain was admitted here with acute left- sided renal colic related to a 1 cm calculus in the left proximal ureter associated with moderate hydronephrosis and perinephric stranding. He was evaluated by urology and underwent cystoscopy and left ureteral stent placement on 03/04/17. He was treated with IV fluids, IV antibiotics symptomatically. He did have leukocytosis on presentation and immediately postop. This has now resolved. He will complete a short course of antibiotics and will be scheduled for stent removal in 2 weeks by urology. He is feeling much better and is stable to be discharged home - Time Spent with Patient Total time spent providing and/or coordinating discharge services: Less than 30 minutes (25 min) - Constitutional Vitals: Temp Pulse Resp BP Pulse Ox 98.3 F 51 20 128/81 96 03/06/17 07:05 03/06/17 07:05 03/06/17 07:05 03/06/17 07:05 03/06/17 07:05 General appearance: Present: cooperative, A&O X 3, no acute distress, answers questions appropriately - Respiratory Respiratory exam: Present: CTAB. Absent: accessory muscle use, rales, rhonchi, wheezes - Cardiovascular Cardiovascular exam: Present: RRR, +S1, +S2. Absent: diastolic murmur, gallop, rubs, systolic murmur - GI/Abdominal GI/Abdominal exam: Present: normal bowel sounds, soft, no peritoneal signs. Absent: distended, tenderness - VTE Documentation of Mechanical Device: Intermittent pneumatic compression device
== END 2017-03-06 12:58 | disposition home or self-care (01) ==
LOC: 3ANU 17:10 → EMEROO 17:10 → 3ANU 21:16
PROVIDERS: ADMIT Internal Medicine; ATTEND Internal Medicine

== ENCOUNTER 2020-03-18 06:00 | Observation (INO) ==
[2020-03-18] MEDS ORDERED: 0.9 % Sodium Chloride 1,000 ML IVC ONE (06:15)
[2020-03-18] MEDS ORDERED: Ondansetron 4 MG/2 ML VIAL IVP ONE ×3 (06:15→11:24)
[2020-03-18] MEDS ORDERED: *HR* FentaNYL (PF) 100 MCG/2 ML VIAL IVP ONE ×2 (06:17→07:46)
[2020-03-18 06:27] LABS: Basophils # 0.1 K/mcL (0.0-0.2); Basophils % 0.7 %; Eosinophils # 0.1 K/mcL (0.0-0.6); Hematocrit 44.5 % (37.5-50.1); Hemoglobin 14.8 g/dL (12.9-16.9); Immature Granulocytes % 0.4 % (0-4); Lymphocytes # 1.7 K/mcL (0.6-4.6); Lymphocytes % 17.5 %; Mean Corpuscular HGB Conc 33.3 g/dL (31.6-35.5); Mean Corpuscular Hemoglobin 30.5 pg (28.0-33.3); Mean Corpuscular Volume 91.6 fL (83.0-100.0); Mean Platelet Volume 12.2 fL (9.4-12.4); Monocytes # 0.5 K/mcL (0.0-1.3); Monocytes % 5.4 %; Neutrophils # 7.4 K/mcL (1.6-8.9); Platelet Count 145 K/mcL (140-400); Red Blood Count 4.86 M/mcL (4.19-5.50); Red Cell Distribution Width 12.6 % (11.5-14.5); White Blood Count 9.9 K/mcL (4.3-11.1)
[2020-03-18 06:29] LABS: Bilirubin,Urine Negative (Negative); Blood,Urine Large (Negative); Clarity,Urine Clear (Clear); Color,Urine Colorless (Yellow); Glucose,Urine (UA) 200 mg/dL (Normal); Ketones,Urine 10 mg/dL (Negative); Leukocyte Esterase,Urine Negative (Negative); Mucus,Urine Few per lpf (None-Few); Nitrite,Urine Negative (Negative); PH,Urine 5.5 pH Units (5.0-8.0); Protein,Urine 30 mg/dL (Neg-Trace); RBC,Urine TNTC per hpf (0-3); Specific Gravity,Urine 1.014 (1.010-1.025); Squamous Epithelial Cell,Urine Few per hpf (None-Few); Urobilinogen,Urine Normal (Normal)
[2020-03-18 06:36] LABS: Activated Partial Thrombo Time 42.4 Seconds (26.0-36.0); INR 1.2; Prothrombin Time 13.3 Seconds (9.4-12.1)
[2020-03-18 06:52] LABS: Alanine Aminotransferase 58 Units/L (7-52); Albumin 4.4 g/dL (3.5-5.7); Albumin/Globulin Ratio 1.6 (1.1-2.2); Alkaline Phosphatase 103 Units/L (34-104); Aspartate Amino Transferase 40 Units/L (13-39); BUN/Creatinine Ratio 11 (6-26); Bilirubin,Direct 0.1 mg/dL (0.0-0.2); Bilirubin,Indirect 0.6 mg/dL (0.0-1.0); Bilirubin,Total 0.7 mg/dL (0.3-1.0); Blood Urea Nitrogen 15 mg/dL (6-20); Calcium 9.2 mg/dL (8.6-10.3); Carbon Dioxide 25 mEq/L (23-29); Chloride 97 mEq/L (98-107); Globulin 2.8 g/dL (2.4-3.5); Glucose 249 mg/dL (70-105); Lipase 39 Units/L (11-82); Osmolality,Calculated 285 (280-300); Potassium 4.1 mEq/L (3.5-5.1); Sodium 133 mEq/L (136-145); Total Protein 7.2 g/dL (6.4-8.9); Troponin I < 0.03 ng/mL (< 0.04); eGFR For African Americans > 60 (> 60); eGFR For Non-African Americans 53 (> 60)
[2020-03-18] MEDS ORDERED: *HR* OxyCODONE Immed Rel 5 MG TABLET PO PRN ×2 (08:10→15:13)
[2020-03-18] MEDS ORDERED: Dextrose Gel 15 GM/37.5 ML TUBE PO PRN ×4 (08:10→15:13)
[2020-03-18] MEDS ORDERED: *HR* Dextrose 50 % in Water (Vial) 50 ML VIAL IVP PRN ×2 (08:10→15:13)
[2020-03-18] MEDS ORDERED: Acetaminophen 325 MG TABLET PO PRN ×2 (08:10→15:13)
[2020-03-18] MEDS ORDERED: *HR* HYDROcodone/Acet 5/325 mg TABLET PO PRN ×2 (08:10→15:13)
[2020-03-18] MEDS ORDERED: Ondansetron 4 MG/2 ML VIAL IVP PRN ×2 (08:10→15:13)
[2020-03-18] MEDS ORDERED: D5% in Water 1,000 ML IVC PRN ×2 (08:10→15:13)
[2020-03-18] MEDS ORDERED: Naloxone 0.4 MG/ML INJ IVP PRN ×2 (08:10→15:13)
[2020-03-18] MEDS ORDERED: *HR* HYDROmorphone (PF) 1 MG/ML SYRINGE IVP PRN ×2 (08:11→15:13)
[2020-03-18] MEDS ORDERED: 0.9 % Sodium Chloride 1,000 ML IVC SCH ×2 (08:15→15:13)
[2020-03-18] MEDS ORDERED: Isovue-300 50ML VIAL ONE (11:17)
[2020-03-18] MEDS ORDERED: *HR* HYDROmorphone PF 0.5 MG/0.5 ML SYRINGE IVP PRN (11:24)
[2020-03-18] MEDS ORDERED: Lidocaine -MPF 2% 2 ML VIAL ONE (11:26)
[2020-03-18] MEDS ORDERED: *HR* Propofol 200 MG/20 ML VIAL IVP ONE (11:26)
[2020-03-18] MEDS ORDERED: *HR* FentaNYL (PF) 100 MCG/2 ML VIAL ONE (11:26)
[2020-03-18] MEDS ORDERED: Ondansetron 4 MG/2 ML VIAL ONE (11:28)
[2020-03-18] MEDS ORDERED: Dexamethasone 4 MG/ML VIAL ONE (11:28)
[2020-03-18] MEDS ORDERED: Insulin LISPRO 300 UNITS/3 ML VIAL SQ SCH ×2 (12:00→18:00)
[2020-03-18] MEDS ORDERED: ceFAZolin 2,000 MG in Water for inj. (sterile) 20 ML IVP ONE (13:22)
[2020-03-18 16:13] VITALS: BP 131/71
== END 2020-03-18 17:40 | disposition home or self-care (01) ==
LOC: 3ANU 06:00 → EMEROOARM 06:00 → 3ANU 10:48
PROVIDERS: ADMIT Internal Medicine; ATTEND Internal Medicine